=== PATIENT | female | born 1985 | race Caucasian/White ===

== ENCOUNTER 2018-04-29 09:35 | Inpatient (IN) | payer OTHER ==
[~2018-04-29] VITALS: Ht 160 cm; Wt 83.0 kg
[~2018-04-29 09:35] MED LIST: DSS100 PO; FERR-72 PO; IBUP100O27 PO; PERCT PO; PREN1TAB80 PO
[2018-04-29] MEDS ORDERED: CITRIC ACID/SODIUM CITRATE 30 ML SOLUTION UDCUP PO ONE ×2 (10:00→12:30)
[2018-04-29] MEDS ORDERED: RINGERS SOLUTION,LACTATED 1,000 ML IV ONE ×3 (10:00→12:16)
[2018-04-29] MEDS ORDERED: METOCLOPRAMIDE HCL 5 MG/ML 2 ML VIAL IVP ONE ×2 (10:00→12:30)
[2018-04-29] MEDS ORDERED: multivitamin PO (10:16)
[2018-04-29 10:26] VITALS: BP 124/72
[2018-04-29 10:48] LABS: BASOPHILS % (AUTO) 0.2 % (0.0-2.0); EOSINOPHILS % (AUTO) 0.5 % (1.0-6.0); HEMOGLOBIN 12.7 g/dL (12.0-16.0); LYMPHOCYTES # (AUTO) 1.3 K/uL (1.0-4.8); LYMPHOCYTES % (AUTO) 14.6 % (22.0-44.0); MEAN CORPUSCULAR HGB CONC 34.3 G/dL (31.0-37.0); MEAN CORPUSCULAR VOLUME 90 fL (80-100); MONOCYTES # (AUTO) 0.5 K/uL (0.1-1.0); MONOCYTES % (AUTO) 5.3 % (2.0-9.0); NEUTROPHILS # (AUTO) 6.9 K/uL (1.8-7.7); NEUTROPHILS % (AUTO) 79.4 % (40.0-70.0); PLATELET COUNT (AUTO)-OB 138 K/uL (150-450); RED BLOOD CELL COUNT(AUTO) 4.09 MIL/uL (4.00-5.20); RED CELL DISTRIBUTION WIDTH 12.8 % (11.5-14.5)
[2018-04-29] MEDS ORDERED: SODIUM CHLORIDE 0.9% 1,000 ML IV ONE (12:08)
[2018-04-29] MEDS ORDERED: MORPHINE SULFATE/PF 0.5 MG/ML 10 ML AMP ONE (12:09)
[2018-04-29] MEDS ORDERED: OXYTOCIN 30 UNITS/LACT RINGERS 500 ML IV ONE (12:16)
[2018-04-29] MEDS ORDERED: CeFAZolin 2 GM/DEXTROSE 50 ML IV ONE (12:30)
[2018-04-29] MEDS ORDERED: LANOLIN 7 GM OINTMENT TP PRN (12:30)
[2018-04-29] MEDS ORDERED: OxyCODONE HCL/ACETAMINOPHEN 5-325 MG TABLET PO PRN ×2 (12:30)
[2018-04-29] MEDS ORDERED: CLOTRIMAZOLE 1% 15 GM CREAM TP SCH (12:44)
[2018-04-29] MEDS ORDERED: HYDROmorphone 2 MG/ML SYRINGE IVP PRN (13:15)
[2018-04-29] MEDS ORDERED: MEPERIDINE HCL/PF 25 MG/0.5 ML AMP IVP PRN (13:15)
[2018-04-29] MEDS ORDERED: FentaNYL CITRATE-PF 100 MCG/2 ML VIAL IVP PRN ×2 (13:15→14:30)
[2018-04-29] MEDS ORDERED: DiphenhydrAMINE HCL 50 MG/ML VIAL IVP PRN (14:30)
[2018-04-29] MEDS ORDERED: NALOXONE HCL 0.4 MG/ML VIAL IVP PRN (14:30)
[2018-04-29] MEDS ORDERED: ONDANSETRON HCL 4 MG/2 ML VIAL IVP PRN (14:30)
[2018-04-29] MEDS ORDERED: MORPHINE SULFATE 10 MG/ML SYRINGE IVP PRN (14:30)
[2018-04-29] MEDS ORDERED: NALBUPHINE HCL 10 MG/ML VIAL IVP PRN ×2 (14:30)
[2018-04-29] MEDS: ACETAMINOPHEN 1000 MG/ISO-OSM 100 ML IV SCH ×2 (15:35→22:55)
[2018-04-29] MEDS ORDERED: OXYGEN THERAPY IH SCH ×3 (20:00)
[2018-04-29] MEDS: RINGERS SOLUTION,LACTATED 1,000 ML IV SCH ×2 (20:16→22:50)
[2018-04-29] MEDS: KETOROLAC TROMETHAMINE 30 MG/ML VIAL IVP SCH (20:35)
[2018-04-30] MEDS: KETOROLAC TROMETHAMINE 30 MG/ML VIAL IVP SCH (02:16)
[2018-04-30] MEDS ORDERED: FentaNYL CITRATE-PF 100 MCG/2 ML VIAL IVP ONE (05:39)
[2018-04-30] MEDS ORDERED: DiphenhydrAMINE HCL 50 MG/ML VIAL IVP ONE (05:39)
[2018-04-30] MEDS ORDERED: KETOROLAC TROMETHAMINE 60 MG/2 ML VIAL IM ONE (05:39)
[2018-04-30] MEDS ORDERED: ONDANSETRON HCL 4 MG/2 ML VIAL IVP ONE (05:39)
[2018-04-30] MEDS ORDERED: EPHEDrine SULFATE 50 MG/ML VIAL IM ONE (05:39)
[2018-04-30] MEDS ORDERED: 0.9% SODIUM CHLORIDE 10 ML VIAL IVP ONE (05:39)
[2018-04-30 06:19] LABS: BASOPHILS % (AUTO) 0.2 % (0.0-2.0); EOSINOPHILS % (AUTO) 1.1 % (1.0-6.0); HEMATOCRIT 28.3 % (36-46); HEMOGLOBIN 9.8 g/dL (12.0-16.0); LYMPHOCYTES # (AUTO) 1.2 K/uL (1.0-4.8); LYMPHOCYTES % (AUTO) 12.8 % (22.0-44.0); MEAN CORPUSCULAR HEMOGLOBIN 31.8 pg (26.0-34.0); MEAN CORPUSCULAR HGB CONC 34.7 G/dL (31.0-37.0); MEAN CORPUSCULAR VOLUME 92 fL (80-100); MONOCYTES # (AUTO) 0.7 K/uL (0.1-1.0); MONOCYTES % (AUTO) 7.2 % (2.0-9.0); NEUTROPHILS # (AUTO) 7.4 K/uL (1.8-7.7); NEUTROPHILS % (AUTO) 78.7 % (40.0-70.0); PLATELET COUNT (AUTO)-OB 107 K/uL (150-450); RED BLOOD CELL COUNT(AUTO) 3.09 MIL/uL (4.00-5.20); RED CELL DISTRIBUTION WIDTH 12.8 % (11.5-14.5)
[2018-04-30] MEDS: MAGNESIUM HYDROXIDE SUSPENSION 30 ML UDCUP PO SCH ×2 (13:40→21:41)
[2018-04-30] MEDS: IBUPROFEN 800 MG TABLET PO PRN ×2 (13:41→21:41)
[2018-05-01] MEDS ORDERED: DSS100 PO (10:29)
[2018-05-01] MEDS ORDERED: IBUP-2070 PO (10:29)
[2018-05-01] MEDS: IBUPROFEN 800 MG TABLET PO PRN (13:41)
== END 2018-05-01 14:10 | disposition home or self-care (01) | DRG 788 ==
LOC: 4S 09:35 → OBSVTOIN 09:35 → 4S 15:00
PROVIDERS: ADMIT Obstetrics & Gynecology; ATTEND Obstetrics & Gynecology
PROC: 10D00Z1 Extraction of Products of Conception, Low, Open Approach (ICD-10-PCS; principal; 2018-04-29)
DX: O34.211 Maternal care for low transverse scar from previous cesarean delivery (principal); O42.92 Full-term premature rupture of membranes, unspecified as to length of time between rupture and onset of labor; Z3A.39 39 weeks gestation of pregnancy; Z37.0 Single live birth
CPT/HCPCS: 86850; 86900; 86901; 87081; J0131; J0690; J1200; J1885; J2274; J2405; J2765; J3010; J3490; J7030; J7120